=== PATIENT | male | born 1955 | race Caucasian/White ===

== ENCOUNTER 2016-10-17 06:51 | Inpatient (IN) | payer BC, OTHER | END 2016-10-20 12:16 | disposition home or self-care (01) | DRG 176 | LOC: ER 06:51 → EROBS 11:05 → 4W 11:32 | DX: I26.99 Other pulmonary embolism without acute cor pulmonale (principal); I20.1 Angina pectoris with documented spasm; I10 Essential (primary) hypertension; F10.10 Alcohol abuse, uncomplicated; E78.5 Hyperlipidemia, unspecified; K21.9 Gastro-esophageal reflux disease without esophagitis; F41.9 Anxiety disorder, unspecified; D75.89 Other specified diseases of blood and blood-forming organs; I71.4 Abdominal aortic aneurysm, without rupture; Y90.0 Blood alcohol level of less than 20 mg/100 ml; Z88.0 Allergy status to penicillin; Z86.718 Personal history of other venous thrombosis and embolism; Z79.01 Long term (current) use of anticoagulants; Z86.711 Personal history of pulmonary embolism; Z71.41 Alcohol abuse counseling and surveillance of alcoholic; I25.2 Old myocardial infarction; Z87.891 Personal history of nicotine dependence; Z82.49 Family history of ischemic heart disease and other diseases of the circulatory system; Z80.3 Family history of malignant neoplasm of breast; Z86.010 Personal history of colon polyps ==

== ENCOUNTER 2017-07-18 10:14 | Emergency (ER) | payer BC, OTHER ==
[~2017-07-18] VITALS: Ht 175.3 cm; Wt 97.1 kg
--- NOTE | ~2017-07-18 | EKG ---
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1955 Requested By: Anjana Spear Order Number: [id number] MD: Travon Fox Measurements Intervals [place] Rate: 67 P: 63 SC: 187 QRS: 47 QRSD: 125 T: 82 QT: 411 QTc: 434 Interpretive Statements Sinus rhythm Consider left atrial enlargement Nonspecific intraventricular conduction delay Probable inferior infarct, old Baseline wander in lead(s) II Compared to ECG 10/17/2016 07:11:02 Intraventricular conduction delay now present Myocardial infarct finding now present Electronically Signed On 07-19-2017 7:48:35 CDT by Travon Fox [email or web address] <ELECTRONICALLY SIGNED> By: Travon Fox MD 07/19/17 0748 1024 1024 Travon Fox MD /EPI
--- NOTE | ~2017-07-18 | EXE ---
[facility] [place] [address] STRESS ECHOCARDIOGRAM Name: GERMANCORINNA Lama Room #: REG Marie#: [id number] Admission: 07/18/17 Attend Phys: Discharge: Date of : 57 Date of Service: 07/18/17 1429 Report #: [id number] THIS REPORT FOR: //name// APPROVED REPORT Study performed: 07/18/2017 12:57:36 Exam: Stress Echocardiogram Indication: Chest pain Patient Location: ER Stress Nurse: Gerri Cross RN Room #: 6 Ht: 5 ft 9 in HR: 80 bpm BP: 151/85 mmHg Medical History Medical History: Tobacco history (Former) Cardiac Risk Factors: FHX of CAD, Smoking Procedure The patient underwent an Exercise Stress Test using the Ponce Protocol. Blood pressure, heart rate, and EKG were monitored. An Echocardiogram was performed by hvac maintenance technician in four stages in quad fashion. At peak stress, four selected images were obtained and placed side by side with resting images for comparison. Stress Test Details Stress Test: Exercise stress testing was performed using a Ponce protocol. HR Resting HR: 80 bpm Max Heart Rate (APMHR): 160 bpm Max HR Achieved: 153 bpm Target HR (85% APMHR): 136 bpm % of APMHR: 95 Recovery HR: 85 bpm HR response to stress: Normal HR response to stress BP Resting BP: 151/85 mmHg Max BP: 170/84 mmHg Recovery BP: 162/80 mmHg ECG Resting ECG: Sinus Rhythm Stress ECG: Sinus Tachycardia [address] [address] STRESS ECHOCARDIOGRAM Name: GERMANCORINNA Kelby [facility]: [facility] [id number] Admission: 07/18/17 Attend Phys: Discharge: Date of : 57 Date of Service: 07/18/17 1429 Report #: [id number] Arrhythmia: None Recovery ECG: Sinus Rhythm Clinical Reason for Termination: Maximal effort Stress Symptoms: Fatigue Exercise duration: 7 min 32 sec Highest Stage Achieved: Stage 3: 3.4 mph at 14% grade. Exercise capacity: 10.10 METs Stress ECG Conclusion 1. Subjectively negative for ischemia 2. Electrocardiographically negative for ischemia 3. Average functional capacity Pre-Stress Echo The resting Echocardiogram showed normal left ventricular contractility with an estimated Ejection Fraction of about 50-55%. Post-Stress Echo The stress Echocardiogram showed normal left ventricular contractility with an estimated Ejection Fraction of about 60-65%. Peak parasternal short axis images were not obtained. Clinical Normal augmentation of myocardial wall segments using a 17 segment model. Conclusion Clinical Response: Non-ischemic Exercise Capacity: Average Stress ECG Response: Non-ischemic Stress Echo Images: Non-ischemic 1. Low risk study Other Information Study Quality: Technically Limited Technically limited study due to lung disease. [address] [address] STRESS ECHOCARDIOGRAM Name: CORINNA PORTER Room #: REG SCAR Salazar#: [id number] Admission: 07/18/17 Attend Phys: Discharge: Date of : 57 Date of Service: 07/18/171428 Report #: [id number] <Conclusion> 1. Low risk study <ELECTRONICALLY SIGNED> By: Samy Rome MD 07/18/17 142 28 28 Samy Rome MD /INF
[~2017-07-18 10:14] MED LIST: ASPIR 8181 M1 PO; ASPIR 8181 MG PO; ASPIRIN325 PO; ATIVAN1 MG PO; CADUET 5 MG-401 EACH PO; DOXYCYCLINE 10100 M1 PO; FISH OIL 1,001000 M2 PO; HYDROCODONE-AP1 EAC6 PO; LEXAPRO 10 MG T10 MG PO; NEURONTIN 300300 M1 PO; PRILOSEC 20 MG20 MG PO; SAVAYSA30 MG PO; SAVAYSA60 MG PO; TYLENOL325 MG PO; UNICOMPLEX M TA1 TA1 PO; VITAMIN B-1100 M1 PO
[2017-07-18 11:02] LABS: ANION GAP 8 mmol/L (7-16); BUN 17 mg/dL (7-18); CALCIUM 9.2 mg/dL (8.5-10.1); CHLORIDE 100 mmol/L (98-107); CO2 28 mmol/L (21-32); CREATININE 1.2 mg/dL (0.7-1.3); GLUCOSE 107 mg/dL (74-106); POTASSIUM 4.1 mmol/L (3.5-5.1); SODIUM 136 mmol/L (136-145)
[2017-07-18] MEDS ORDERED: STIOLTO RESPIMAT4 GM INH (11:02)
[2017-07-18] MEDS ORDERED: TRAMADOL 50 MG50 MG PO (11:03)
[2017-07-18 11:05] LABS: HEMATOCRIT 43.3 % (42.0-52.0); HEMOGLOBIN 14.8 gm/dL (14.0-18.0); MCH 34.8 pg (26.0-34.0); MCHC 34.2 g/dL (28.0-37.0); MCV 101.7 fL (80.0-100.0); PLATELET COUNT 257 thou/uL (150-400); RBC 4.26 mil/uL (4.50-6.00); RDW 14.1 % (10.5-14.5); WBC 3.5 thou/uL (4.0-11.0)
[2017-07-18 11:07] LABS: APTT 27.6 Seconds (24.5-32.8); PROTIME 10.7 Seconds (9.3-11.4)
[2017-07-18 11:10] LABS: TROPONIN-I < 0.04 ng/mL (<0.06)
[2017-07-18 12:21] LABS: PLATELET ESTIMATE NORMAL
[2017-07-18] MEDS ORDERED: ATIVAN1 MG PO (14:37)
== END 2017-07-18 14:47 | disposition home or self-care (01) ==
LOC: ER 10:14
PROVIDERS: Emergency Medicine
DX: R07.89 Other chest pain (principal); J44.9 Chronic obstructive pulmonary disease, unspecified; I25.2 Old myocardial infarction; Z87.891 Personal history of nicotine dependence; Z88.0 Allergy status to penicillin

== ENCOUNTER → 2018-08-29 | Outpatient (CLI) | payer BC, OTHER ==
[~2018-08-29] MED LIST changes: +STIOLTO RESPIMAT4 GM INH; +TRAMADOL 50 MG50 MG PO
--- NOTE | 2018-08-30 20:27 | SLE ---
[facility] [place] [address] POLYSOMNOGRAPHY STUDY Name: CORINNA PORTER Room #: REG [facility].#: [id number] Admission: 08/29/18 ������������������ Attend Phys: Mk Arnett MD Discharge: ������������������ Date of : 57 Report #: [id number] THIS REPORT FOR: //name// CC: Mk Choudhary MD DATE OF SERVICE: 08/29/2018 ATTENDING PHYSICIAN: Dr. Hernandez Choudhary. INDICATIONS: The patient is 62 years old who weighs 228 pounds with a BMI of 33.7. The patient's [place] score was 10. The patient has a history of obstructive sleep apnea for which he has been on auto CPAP. During a recent evaluation, a download data revealed an AHI of 4.0; however, the patient was also noted to have an abnormal nocturnal oximetry study while on CPAP. As a result, the patient was referred back for another titration study. DESCRIPTION: During the night study, the patient spent 396 minutes in bed and slept for 268 minutes with a low sleep efficiency of 68%. Sleep latency was 10.6 minutes with a REM latency of 112 minutes. Overall, sleep architecture showed increased stage 1 and stage 2 sleep, absent slow wave and normal REM sleep. EKG monitoring revealed an average heart rate of 69 beats per minute with a maximum of 89 beats per minute. Frequent PVCs observed, but no sustained arrhythmias observed. PLMS were seen at an index of 9 per hour and 2 per hour caused EEG arousals. The patient was started on CPAP at 9 cm of water and titrated up to 16 cm of water. The patient's respiratory events were eliminated at a lower pressure; however, the patient's CPAP pressure was increased to eliminate snoring as well. At a final pressure of 16 cm of water, the patient had only 5.7 minutes of sleep. The patient had supine as well as REM sleep. The patient's AHI was reduced to 0 per hour and oxygen saturation remained above 90%. IMPRESSION: 1. Sleep apnea diagnosed previously. 2. No clinically significant periodic limb movements during sleep. RECOMMENDATIONS: 1. CPAP at 16 cm of water completely eliminated the patient's sleep apnea and should be used on a nightly basis. The patient did not require supplemental oxygen. It should be noted that limited sleep was seen on the final pressure. The patient should have a download information [place] [address] POLYSOMNOGRAPHY STUDY Name: CORINNA PORTER Room #: REG CLNisha Salazar#: [id number] Admission: 08/29/18 ������������������ Attend Phys: Mk Arnett MD Discharge: ������������������ Date of : 57 Report #: [id number] assess the efficacy of the current CPAP pressure and also to assess for clinical improvement. 2. Weight loss is strongly advised. 3. Avoid PATIENT ASSISTANT depressants. 4. Cautioned regarding driving until symptoms of sleep apnea resolve with the above recommendations. ��������������������������������������������� <ELECTRONICALLY SIGNED> ���������������������������������������� By: Mk Arnett MD ��������������������������������������������� 08/30/182026 1119 1229 Mk Arnett MD /nt
== END ==
LOC: SLEEPLAB 08-20 16:05
DX: G47.33 Obstructive sleep apnea (adult) (pediatric) (principal)

== ENCOUNTER 2019-06-18 01:59 | Emergency (ER) | payer BC, OTHER ==
[~2019-06-18] VITALS: Ht 175.3 cm; Wt 104.3 kg
--- NOTE | ~2019-06-18 | EMS ---
[facility] [address] [place] [address] EMS Patient Care Report Name: CORINNA PORTER Room #: PRE SCAR M.Ofelia#: [id number] Admission: Attend Phys: Discharge: Date of : 57 Report #: [id number] THIS REPORT FOR: //name// Report Transmitted: 06/18/2019 01:25 EMS Care Summary [facility] MED-ACT Incident [id number] @ 06/18/2019 01:22 Incident Location [address] [place] [address] Patient CORINNA PORTER Male, 63 Years 1955 Patient Address [address] [place] [address] Patient History Chronic Obstructive Pulmonary Disease (COPD),Hypertension (HTN),Cardiac Condition - Other, Patient Allergies Penicillin allergy, Patient Medications ASA, Fluoxetine, Amlodipine, Hydrochlorothiazide (Hctz), Losartan, Chief Complaint shortness of breath Disposition Transported No Lights/[place] Reason Breathing Problem Transported To [facility] Narrative Pt is found sitting on the couch with FD at side. Pt is in no acute distress. Pt able to speak in complete sentences without distress. Pt states he awoke feeling shortness of breath that lasted for approx 1 hr prior to EMS arrival. [facility] [address] [place] [address] EMS Patient Care Report Name: CORINNA PORTER Room #: PRE SCAR Salazar#: [id number] Admission: Attend Phys: Discharge: Date of : 57 Report #: [id number] Pt states he took 3 puffs of his inhaler and 2 xanax. Pt states this took approx 1 hr to give him relief. Pt states his shortness of breath has improved and states he felt better on EMS arrival. pt states he has a hx of COPD. Pt denied: CP, abd pain, weakness, n/v/d, fv, recent travel, new cough, back pain. Pt expressed no further complaints/discomfort. Tx= VS, EKG/12lead-NSR, pt able to stand and ambulate to nearby cot and secured without incident. En route= VS, hospital contact with info only, pt has no changes en route. Initial Vitals @01:34P: 88,R: 16,SpO2: 95,DC Suspected: false @01:33P: 84,R: 16,GCS: 15,SpO2: 96, @01:33P: 81,R: 16,BP: 145/75,Pain: 0/10,GCS: 15,SpO2: 95,Revised Trauma: 12, @01:50P: 85,R: 16,BP: 131/87,GCS: 15,SpO2: 95,Revised Trauma: 12, @01:45P: 81,R: 16,BP: 137/71,GCS: 15,SpO2: 96,Revised Trauma: 12, Assessments @01:32MENTAL:Person Oriented,Time Oriented,Event Oriented,Place Oriented,SKIN:HEENT:Head/Face: No Abnormalities,LUNG SOUNDS:General: No Abnormalities,ABDOMEN:General: No Abnormalities,PELVIS//GI:No Abnormalities,EXTREMITIES:Left Arm: No Abnormalities,Right Arm: No Abnormalities,Left Leg: No Abnormalities,Right Leg: No Abnormalities,PULSE:Radial: 2+ Normal,NEURO:No Abnormalities, Impression Shortness of breath Procedures @01:3412-Lead ECG Timeline 01:20,Call Received 01:20,Psap Call 01:22,Dispatched 01:23,En Route 01:29,On Scene 01:31,At Patient 01:33,BP: 145/75 M,PULSE: 81,RR: 16 R,SPO2: 95 Ox,ETCO2: ,BG: ,PAIN: 0,GCS: 15, 01:33,BP: / M,PULSE: 84,RR: 16 R,SPO2: 96 Ox,ETCO2: ,BG: ,PAIN: ,GCS: 15, 01:34,12-Lead ECG, 01:34,BP: / M,PULSE: 88,RR: 16 R,SPO2: 95 Ox,ETCO2: ,BG: ,PAIN: ,GCS: , 01:44,Depart Scene 01:45,BP: 137/71 M,PULSE: 81,RR: 16 R,SPO2: 96 Ox,ETCO2: ,BG: ,PAIN: ,GCS: 15, 01:50,BP: 131/87 M,PULSE: 85,RR: 16 R,SPO2: 95 Ox,ETCO2: ,BG: ,PAIN: ,GCS: 15, 01:53,At Destination [address] [address] EMS Patient Care Report Name: CORINNA PORTER Room #: PRE M.R.#: [id number] Admission: Attend Phys: Discharge: Date of : 57 Report #: [id number] 02:07,Call Closed Disclaimer v1.1 Copyright 2020 [employer] This EMS Care Summary contains data elements from the applicable legal record (which may be displayed differently). It is designed to provide pertinent information for the following purposes: continuity of care, clinical quality, and state data reporting. The complete legal record is available to ED staff and administrators of the receiving hospital in [employer]'s Patient Tracker. All data is provided "as is."
[2019-06-18 02:25] LABS: ABSOLUTE NEUTROPHILS 4.5 thou/uL (1.4-8.2); BASOPHILS 0.5 % (0.0-2.0); EOSINOPHILS 0.6 % (0.0-3.0); HEMATOCRIT 42.8 % (42.0-52.0); HEMOGLOBIN 14.6 gm/dL (14.0-18.0); LYMPHOCYTES 11.8 % (24.0-44.0); MCH 35.6 pg (26.0-34.0); MCV 104.5 fL (80.0-100.0); MONOCYTES 8.2 % (1.0-8.0); PLATELET COUNT 297 thou/uL (150-400); POLYS 78.9 % (36.0-66.0); RDW 14.7 % (10.5-14.5); WBC 5.7 thou/uL (4.0-11.0)
[2019-06-18 02:31] LABS: ANION GAP 13 mmol/L (7-16); BUN 13 mg/dL (7-18); CALCIUM 8.8 mg/dL (8.5-10.1); CHLORIDE 94 mmol/L (98-107); CO2 23 mmol/L (21-32); CREATININE 1.1 mg/dL (0.7-1.3); GLUCOSE 111 mg/dL (74-106); POTASSIUM 3.7 mmol/L (3.5-5.1); SODIUM 130 mmol/L (136-145)
[2019-06-18 02:41] LABS: ALBUMIN 3.8 g/dL (3.4-5.0); SGOT 38 U/L (15-37); SGPT 65 U/L (30-65); TOTAL BILIRUBIN 0.4 mg/dL (<0.1-1.0); TOTAL PROTEIN 7.4 g/dL (6.4-8.2); TROPONIN-I <0.06 ng/mL (<0.06)
[2019-06-18] MEDS ORDERED: ALPRAZOLAM 0.50.5 M1 PO (02:52)
[2019-06-18] MEDS ORDERED: HYDROCHLOROTH12.5 M2 PO (02:52)
[2019-06-18] MEDS ORDERED: FLUOXETINE HCL40 MG PO (02:54)
[2019-06-18] MEDS ORDERED: TRELEGY ELLIPT1 EACH INH (02:55)
[2019-06-18 03:05] VITALS: BP 146/66
--- NOTE | 2019-06-19 11:52 | EKG ---
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 : 1955 Requested By: Kiran James Order Number: [id number] : Travon Fox Measurements Intervals [place] Rate: 79 P: 47 [place]: 199 QRS: 56 QRSD: 106 T: 64 QT: 416 QTc: 477 Interpretive Statements Sinus rhythm Abnormal R-wave progression, early transition Inferior infarct, old Baseline wander in lead(s) V1,V5 Compared to ECG 07/18/2017 10:24:32 Intraventricular conduction delay no longer present Myocardial infarct finding still present Electronically Signed On 06-19-2019 11:50:41 CDT by Travon Fox [email or web address] <ELECTRONICALLY SIGNED> By: Travon Fox MD 06/19/19 1150 0 0 Travon Fox MD /EPI
== END 2019-06-18 03:50 | disposition home or self-care (01) ==
LOC: ER 01:59
PROVIDERS: Emergency Medicine
DX: R06.02 Shortness of breath (principal); F41.9 Anxiety disorder, unspecified; J44.9 Chronic obstructive pulmonary disease, unspecified; I10 Essential (primary) hypertension; I25.2 Old myocardial infarction; Z98.890 Other specified postprocedural states; Z90.89 Acquired absence of other organs; Z86.711 Personal history of pulmonary embolism; Z79.82 Long term (current) use of aspirin; Z79.899 Other long term (current) drug therapy; Z88.0 Allergy status to penicillin; Z87.891 Personal history of nicotine dependence

== ENCOUNTER → 2019-08-03 | Outpatient (CLI) | payer BC, OTHER ==
[~2019-08-03] MED LIST changes: +ALPRAZOLAM 0.50.5 M1 PO; +FLUOXETINE HCL40 MG PO; +HYDROCHLOROTH12.5 M2 PO; +TRELEGY ELLIPT1 EACH INH
== END ==
LOC: RAD 10:32
PROVIDERS: ATTEND Internal Medicine Pulmonary Disease
DX: R06.02 Shortness of breath (principal)

== ENCOUNTER → 2019-12-08 | Outpatient (CLI) | payer OTHER | LOC: SJCVCIMAG 08:30 | PROVIDERS: ATTEND Internal Medicine Cardiovascular Disease | DX: I71.4 Abdominal aortic aneurysm, without rupture (principal); I49.3 Ventricular premature depolarization; I73.9 Peripheral vascular disease, unspecified; I25.10 Atherosclerotic heart disease of native coronary artery without angina pectoris; I10 Essential (primary) hypertension; J44.9 Chronic obstructive pulmonary disease, unspecified; Z79.899 Other long term (current) drug therapy; Z87.891 Personal history of nicotine dependence ==

== ENCOUNTER → 2020-09-06 | Outpatient (CLI) | payer OTHER | LOC: SJCVC 13:44 | PROVIDERS: ATTEND Internal Medicine Cardiovascular Disease | DX: R94.31 Abnormal electrocardiogram [ECG] [EKG] (principal); I71.4 Abdominal aortic aneurysm, without rupture; E78.00 Pure hypercholesterolemia, unspecified; I10 Essential (primary) hypertension; G47.33 Obstructive sleep apnea (adult) (pediatric); I25.10 Atherosclerotic heart disease of native coronary artery without angina pectoris; J44.9 Chronic obstructive pulmonary disease, unspecified; K21.9 Gastro-esophageal reflux disease without esophagitis; Z99.89 Dependence on other enabling machines and devices; Z88.0 Allergy status to penicillin; Z88.8 Allergy status to other drugs, medicaments and biological substances; Z79.82 Long term (current) use of aspirin; Z79.899 Other long term (current) drug therapy; Z86.718 Personal history of other venous thrombosis and embolism; Z86.711 Personal history of pulmonary embolism; Z86.79 Personal history of other diseases of the circulatory system; Z87.891 Personal history of nicotine dependence; Z82.49 Family history of ischemic heart disease and other diseases of the circulatory system ==

== ENCOUNTER → 2020-09-11 | Outpatient (CLI) | payer OTHER | LOC: CAT 10:53 | PROVIDERS: ATTEND Internal Medicine Cardiovascular Disease | DX: Z13.6 Encounter for screening for cardiovascular disorders (principal); E78.00 Pure hypercholesterolemia, unspecified; I25.10 Atherosclerotic heart disease of native coronary artery without angina pectoris ==

== ENCOUNTER 2020-09-15 19:05 | Emergency (ER) | payer OTHER ==
[~2020-09-15] VITALS: Ht 162.6 cm; Wt 117.9 kg
--- NOTE | ~2020-09-15 | EMS ---
[address] [address] EMS Patient Care Report Name: CORINNA KAHN Room #: REG SCAR Salazar#: [id number] Admission: 09/15/20 Attend Phys: Discharge: Date of : 57 Report #: [id number] THIS REPORT FOR: //name// Report Transmitted: 09/15/2020 20:14 EMS Care Summary [facility] MED-ACT Incident [id number] @ 09/15/2020 18:29 Incident Location [address] [place] [address] Patient CORINNA PORTER Male, 64 Years 1955 Patient Address [address] [place] [address] Patient History Other,Chronic Obstructive Pulmonary Disease (COPD),Cardiac - Stent, Patient Allergies Penicillin allergy, Patient Medications Albuterol, Gabapentin, Fluoxetine, Buspirone, Prilosec, Aspirin, Amlodipine, Atorvastatin, Losartan, Chief Complaint Dyspnea Disposition Transported No Lights/[place] Reason Breathing Problem Transported To [facility] Narrative Pt. states that he has not been able to keep his oxygen saturations up today. At his worst, his oxygen saturation was 85%. Pt. has a COPD hx. He required his night time oxygen during the day today to maintain his saturation. [address] [address] EMS Patient Care Report Name: CORINNA KAHN Room #: REG ER Marie#: [id number] Admission: 09/15/20 Attend Phys: Discharge: Date of : 57 Report #: [id number] He complains of feeling slightly short of breath this evening. He denies chest pain, cough, fever. He is fully vaccinated. He also has a hx of an AMI and a pulmonary embolism. He states that his ankles are swollen today which is a new symptoms for him. He does not take a diuretic. No other complaints noted. Arrived to find the pt seated on a couch. He was alert and did not appear to be in any obvious respiratory distress. The pt. wanted to walk to the ambulance. The cot was brought to the front door. He was able to walk to the cot without any distress. T(x)- oxygen via NC @ 2lpm Outcome- Sats improved slightly on 2 lpm. No other changes were noted in the pt's condition upon arrival at [place]. Initial Vitals @18:54P: 78,BP: 112/74,SpO2: 93, @18:48P: 80,SpO2: 94, @18:36P: 82,R: 16,BP: 132/71,Pain: 0/10,GCS: 15,Temp: 97.4F,SpO2: 91,Revised Trauma: 12, Assessments @18:38MENTAL:No Abnormalities,SKIN:HEENT:LUNG SOUNDS:ABDOMEN:PELVIS//GI:EXTREMITIES:Left Leg: Edema,Right Leg: Edema,PULSE:NEURO:No Abnormalities, Impression Acute Respiratory Distress (Dyspnea) Procedures @18:4812-Lead ECGResponse: UnchangedSucceeded@18:48Oxygen FlowRate: 2 Device: Nasal Cannula (NC) Response: ImprovedSucceeded Timeline 18:27,Call Received 18:27,Psap Call 18:29,Dispatched 18:30,En Route 18:33,On Scene 18:34,At Patient 18:36,BP: 132/71 M,PULSE: 82,RR: 16 R,SPO2: 91 Ox,ETCO2: ,BG: ,PAIN: 0,GCS: 15, 18:48,Oxygen FlowRate: 2 Device: Nasal Cannula (NC) Response: ImprovedSucceeded, 18:48,12-Lead ECG,Response: UnchangedSucceeded, 18:48,BP: / M,PULSE: 80,RR: R,SPO2: 94 Ox,ETCO2: ,BG: ,PAIN: ,GCS: , 18:54,BP: 112/74 M,PULSE: 78,RR: R,SPO2: 93 Ox,ETCO2: ,BG: ,PAIN: ,GCS: , [place] [address] EMS Patient Care Report Name: CORINNA KAHN [id number] Admission: 09/15/20 Attend Phys: Discharge: Date of : 57 Report #: [id number] 19:04,Depart Scene 19:04,At Destination 19:17,Call Closed Disclaimer v1.1 Copyright 2020 [employer] This EMS Care Summary contains data elements from the applicable legal record (which may be displayed differently). It is designed to provide pertinent information for the following purposes: continuity of care, clinical quality, and state data reporting. The complete legal record is available to ED staff and administrators of the receiving hospital in [facility]'s Patient Tracker. All data is provided "as is."
--- NOTE | ~2020-09-15 | EMS ---
[address] [address] EMS Patient Care Report Name: CORINNA KAHN Room #: DEP SCAR Salazar#: [id number] Admission: 09/15/20 Attend Phys: Discharge: 09/15/20 Date of : 57 Report #: [id number] THIS REPORT FOR: //name// Report Transmitted: 09/18/2020 09:[address] [facility] MED-ACT Incident [id number] @ 09/15/2020 18:29 Incident Location [address] [place] [address] Patient CORINNA PORTER Male, 64 Years 1955 Patient Address [address] [place] [address] Patient History Other,Chronic Obstructive Pulmonary Disease (COPD),Cardiac - Stent, Patient Allergies Penicillin allergy, Patient Medications Albuterol, Gabapentin, Fluoxetine, Buspirone, Prilosec, Aspirin, Amlodipine, Atorvastatin, Losartan, Chief Complaint Dyspnea Disposition Transported No Lights/[place] Dispatch Reason Breathing Problem Transported To [facility] Narrative Pt. states that he has not been able to keep his oxygen saturations up today. At his worst, his oxygen saturation was 85%. Pt. has a COPD hx. He required his night time oxygen during the day today to maintain his saturation. [address] [address] EMS Patient Care Report Name: CORINNA KAHN Room #: DEP ER Marie#: [id number] Admission: 09/15/20 Attend Phys: Discharge: 09/15/20 Date of : 57 Report #: [id number] He complains of feeling slightly short of breath this evening. He denies chest pain, cough, fever. He is fully vaccinated. He also has a hx of an AMI and a pulmonary embolism. He states that his ankles are swollen today which is a new symptoms for him. He does not take a diuretic. No other complaints noted. Arrived to find the pt seated on a couch. He was alert and did not appear to be in any obvious respiratory distress. The pt. wanted to walk to the ambulance. The cot was brought to the front door. He was able to walk to the cot without any distress. T(x)- oxygen via NC @ 2lpm Outcome- Sats improved slightly on 2 lpm. No other changes were noted in the pt's condition upon arrival at [place]. Initial Vitals @18:54P: 78,BP: 112/74,SpO2: 93, @18:48P: 80,SpO2: 94, @18:36P: 82,R: 16,BP: 132/71,Pain: 0/10,GCS: 15,Temp: 97.4F,SpO2: 91,Revised Trauma: 12, Assessments @18:38MENTAL:No Abnormalities,SKIN:HEENT:LUNG SOUNDS:ABDOMEN:PELVIS//GI:EXTREMITIES:Left Leg: Edema,Right Leg: Edema,PULSE:NEURO:No Abnormalities, Impression Acute Respiratory Distress (Dyspnea) Procedures @18:4812-Lead ECGResponse: UnchangedSucceeded@18:48Oxygen FlowRate: 2 Device: Nasal Cannula (NC) Response: ImprovedSucceeded Timeline 18:27,Call Received 18:27,Psap Call 18:29,Dispatched 18:30,En Route 18:33,On Scene 18:34,At Patient 18:36,BP: 132/71 M,PULSE: 82,RR: 16 R,SPO2: 91 Ox,ETCO2: ,BG: ,PAIN: 0,GCS: 15, 18:48,Oxygen FlowRate: 2 Device: Nasal Cannula (NC) Response: ImprovedSucceeded, 18:48,12-Lead ECG,Response: UnchangedSucceeded, 18:48,BP: / M,PULSE: 80,RR: R,SPO2: 94 Ox,ETCO2: ,BG: ,PAIN: ,GCS: , 18:54,BP: 112/74 M,PULSE: 78,RR: R,SPO2: 93 Ox,ETCO2: ,BG: ,PAIN: ,GCS: , [address] [address] EMS Patient Care Report Name: CORINNA KAHN Room #: [facility] Marie#: [id number] Admission: 09/15/20 Attend Phys: Discharge: 09/15/20 Date of : 57 Report #: [id number] 19:04,Depart Scene 19:04,At Destination 19:17,Call Closed Disclaimer v1.1 Copyright 2020 [employer] This EMS Care Summary contains data elements from the applicable legal record (which may be displayed differently). It is designed to provide pertinent information for the following purposes: continuity of care, clinical quality, and state data reporting. The complete legal record is available to ED staff and administrators of the receiving hospital in [employer] Patient Tracker. All data is provided "as is."
[2020-09-15 19:57] LABS: BASOPHILS 0.6 % (0.0-2.0); EOSINOPHILS 1.4 % (0.0-3.0); HEMATOCRIT 36.2 % (42.0-52.0); HEMOGLOBIN 12.3 gm/dL (14.0-18.0); LYMPHOCYTES 17.1 % (24.0-44.0); MCH 35.4 pg (26.0-34.0); MCHC 33.9 g/dL (28.0-37.0); MCV 104.4 fL (80.0-100.0); MONOCYTES 8.2 % (1.0-8.0); PLATELET COUNT 264 thou/uL (150-400); POLYS 72.7 % (36.0-66.0); RBC 3.47 mil/uL (4.50-6.00); RDW 16.1 % (10.5-14.5); WBC 5.5 thou/uL (4.0-11.0)
[2020-09-15 20:24] LABS: ANION GAP 12 mmol/L (7-16); BUN 15 mg/dL (7-18); CALCIUM 8.3 mg/dL (8.5-10.1); CHLORIDE 103 mmol/L (98-107); CO2 24 mmol/L (21-32); CREATININE 1.2 mg/dL (0.7-1.3); GLUCOSE 154 mg/dL (74-106); POTASSIUM 3.8 mmol/L (3.5-5.1); SODIUM 139 mmol/L (136-145)
[2020-09-15 20:33] LABS: ALBUMIN 3.3 g/dL (3.4-5.0); SGOT 19 U/L (15-37); SGPT 37 U/L (30-65); TOTAL BILIRUBIN 0.2 mg/dL (0.2-1.0); TOTAL PROTEIN 6.6 g/dL (6.4-8.2); TROPONIN-I <0.06 ng/mL (<0.06)
[2020-09-15 21:47] VITALS: BP 142/57
[2020-09-15] MEDS ORDERED: PREDNISONE 20 M20 MG PO (21:50)
--- NOTE | 2020-09-16 10:49 | EKG ---
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 : 1955 Requested By: Kobe Burgos Order Number: [id number] MD: Chaim Lockhart Measurements Intervals [place] Rate: 79 P: 52 AK: 211 QRS: 54 QRSD: 101 T: 66 QT: 414 QTc: 475 Interpretive Statements Sinus rhythm Abnormal R-wave progression, early transition Possible inferior infarct, old Baseline wander in lead(s) V2 Compared to ECG 06/18/2019 02:21:15 No significant changes Electronically Signed On 09-16-2020 10:49:00 CDT by Chaim Lockhart [email or web address] <ELECTRONICALLY SIGNED> By: Chaim Lockhart MD, [facility] 09/16/201048 58 58 Chaim Lockhart MD, [facility] /EPI
== END 2020-09-15 22:15 | disposition home or self-care (01) ==
LOC: ER 19:05
PROVIDERS: Emergency Medicine
DX: J44.1 Chronic obstructive pulmonary disease with (acute) exacerbation (principal); J06.9 Acute upper respiratory infection, unspecified; Z87.891 Personal history of nicotine dependence; Z90.89 Acquired absence of other organs; Z79.899 Other long term (current) drug therapy; Z88.0 Allergy status to penicillin; Z20.822 Contact with and (suspected) exposure to COVID-19

== ENCOUNTER → 2020-09-21 | Outpatient (CLI) | payer OTHER ==
[~2020-09-21] MED LIST changes: +PREDNISONE 20 M20 MG PO
== END ==
LOC: RAD 12:14
PROVIDERS: ATTEND Pediatrics
DX: R06.02 Shortness of breath (principal)

== ENCOUNTER 2020-09-26 05:17 | Emergency (ER) | payer OTHER ==
[~2020-09-26] VITALS: Ht 175.3 cm; Wt 117.9 kg
--- NOTE | ~2020-09-26 | EMS ---
[facility] [address] [place] [address] EMS Patient Care Report Name: CORINNA KAHN Room #: REG SCAR Salazar#: [id number] Admission: 09/26/20 Attend Phys: Discharge: Date of : 57 Report #: [id number] THIS REPORT FOR: //name// Report Transmitted: 09/26/2020 05:52 EMS Care Summary [facility] MED-ACT Incident [id number] @ 09/26/2020 04:41 Incident Location [address] [place] [address] Patient CORINNA PORTER Male, 64 Years 1955 Patient Address [address] [place] [address] Patient History Other,Chronic Obstructive Pulmonary Disease (COPD),Cardiac - Stent, Patient Allergies Penicillin allergy, Patient Medications Losartan, Amlodipine, Albuterol, Buspirone, Gabapentin, Fluoxetine, Atorvastatin, Prilosec, Aspirin, Chief Complaint Hand Tremors Disposition Transported No Lights/[place] [facility] Reason Sick Person Transported To [facility] Narrative Complaint: Hand tremors History: Pt reports waking up this morning at 0200 hours and noticing tremors [address] [address] EMS Patient Care Report Name: CORINNA KAHN Room #: REG Roly.#: [id number] Admission: 09/26/20 Attend Phys: Discharge: Date of : 57 Report #: [id number] to his hands that he is unable to control and/or stop. Pt states that he was seen in the ER last week, for a respiratory issue, and was prescribed Prednisone for his complaint, which he completed a four day course of that medication. Yesterday, the patient's noticed the patient still noticed had to clear his throat and did call his doctor for another course of the prednisone, but had not heard back yet. Pt reports having an alcoholic drink this morning, after waking up with the tremors, to try and relieve his symptoms with no success. After several hours of these hand tremors continuing, 911 was then called. Assessment: Pt found sitting upright on couch in living room of home, pt has hand tremors noted, no obvious s / s of acute distress, no obvious s / s of trauma noted. Rendered Treatment: Pt evaluated, history obtained, vitals assessed, EKG monitored, blood glucose obtained, EKG monitored. Pt able to ambulate from home to unit and onto cot in unit. 12 lead obtained, pt secured. Transport: Vitals re-assessed, EKG monitored, bio-com report given. Destination: Pt transported to [facility] ER via EMS. Pt care transferred to RN in ER room 3 with no changes en route. Pt able to ambulate from cot to ER bed (4 steps) without difficutly. 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 Mask on Patient,Response: Unchanged 04:39,Call Received 04:39,Psap Call 04:41,Dispatched 04:43,En Route 04:46,On Scene 04:47,At Patient 04:50,BP: 144/77 M,PULSE: 69,RR: 16 R,SPO2: 95 Ox,ETCO2: ,B,PAIN: 0,GCS: [facility] [address] [place] [address] EMS Patient Care Report Name: CORINNA KAHN Room #: REG [facility].#: [id number] Admission: 09/26/20 Attend Phys: Discharge: Date of : 57 Report #: [id number] 15, 05:01,12-Lead ECG, 05:01,BP: / M,PULSE: ,RR: R,SPO2: Ox,ETCO2: ,BG: ,PAIN: ,GCS: , 05:05,Depart Scene 05:08,BP: 154/92 M,PULSE: 69,RR: 18 R,SPO2: 94 Ox,ETCO2: ,BG: ,PAIN: ,GCS: , 05:14,At Destination 05:25,Call Closed Disclaimer v1.1 Copyright 2020 [employer] This EMS Care Summary contains data elements from the applicable legal record (which may be displayed differently). It is designed to provide pertinent information for the following purposes: continuity of care, clinical quality, and state data reporting. The complete legal record is available to ED staff and administrators of the receiving hospital in [facility]'s Patient Tracker. All data is provided "as is."
[2020-09-26] MEDS ORDERED: LOSARTAN-HCTZ1 EACH PO (05:28)
[2020-09-26 07:00] LABS: ABSOLUTE NEUTROPHILS 4.8 thou/uL (1.4-8.2); BASOPHILS 0.5 % (0.0-2.0); EOSINOPHILS 1.2 % (0.0-3.0); HEMATOCRIT 40.8 % (42.0-52.0); HEMOGLOBIN 13.8 gm/dL (14.0-18.0); MCHC 33.8 g/dL (28.0-37.0); MCV 103.6 fL (80.0-100.0); MONOCYTES 12.2 % (1.0-8.0); PLATELET COUNT 280 thou/uL (150-400); POLYS 74.1 % (36.0-66.0); RBC 3.94 mil/uL (4.50-6.00); RDW 15.4 % (10.5-14.5); WBC 6.5 thou/uL (4.0-11.0)
[2020-09-26 07:08] LABS: CALCIUM 8.6 mg/dL (8.5-10.1); POTASSIUM 3.9 mmol/L (3.5-5.1)
[2020-09-26 07:14] LABS: ALBUMIN 3.5 g/dL (3.4-5.0); MAGNESIUM 2.2 mg/dL (1.8-2.4); TOTAL BILIRUBIN 0.5 mg/dL (0.2-1.0); TOTAL PROTEIN 7.2 g/dL (6.4-8.2)
[2020-09-26 08:36] LABS: CALCIUM 7.8 mg/dL (8.5-10.1); CREATININE 0.9 mg/dL (0.7-1.3); POTASSIUM 3.8 mmol/L (3.5-5.1)
[2020-09-26] MEDS ORDERED: CHLORDIAZEPOXID25 M1 PO (09:00)
[2020-09-26 09:03] VITALS: BP 152/76
== END 2020-09-26 09:03 | disposition home or self-care (01) ==
LOC: ER 05:17
PROVIDERS: Emergency Medicine
DX: R25.1 Tremor, unspecified (principal); F10.20 Alcohol dependence, uncomplicated; I25.2 Old myocardial infarction; J44.9 Chronic obstructive pulmonary disease, unspecified; Z98.890 Other specified postprocedural states; Z90.89 Acquired absence of other organs; Z79.82 Long term (current) use of aspirin; Z79.899 Other long term (current) drug therapy; Z79.891 Long term (current) use of opiate analgesic; Z88.0 Allergy status to penicillin; Z87.891 Personal history of nicotine dependence; Y90.3 Blood alcohol level of 60-79 mg/100 ml

== ENCOUNTER → 2021-03-07 | Outpatient (CLI) | payer MEDICARE ==
[~2021-03-07] MED LIST changes: +CHLORDIAZEPOXID25 M1 PO; +LOSARTAN-HCTZ1 EACH PO
== END ==
LOC: SJCVC 11:18 → SJCVCIMAG 11:18
PROVIDERS: ATTEND Internal Medicine Cardiovascular Disease
DX: R94.31 Abnormal electrocardiogram [ECG] [EKG] (principal); I71.4 Abdominal aortic aneurysm, without rupture; I10 Essential (primary) hypertension; E78.00 Pure hypercholesterolemia, unspecified; K21.9 Gastro-esophageal reflux disease without esophagitis; F41.9 Anxiety disorder, unspecified; G47.33 Obstructive sleep apnea (adult) (pediatric); J44.9 Chronic obstructive pulmonary disease, unspecified; Z99.89 Dependence on other enabling machines and devices; Z86.79 Personal history of other diseases of the circulatory system; Z86.711 Personal history of pulmonary embolism; Z79.899 Other long term (current) drug therapy; Z88.0 Allergy status to penicillin; Z88.8 Allergy status to other drugs, medicaments and biological substances; Z87.891 Personal history of nicotine dependence